=== PATIENT | male | born 1945 | race Caucasian/White ===

== ENCOUNTER 2019-08-26 06:19 | Outpatient (CLI) | payer MEDICARE, OTHER, SELFPAY ==
[2019-08-26 18:35] LABS: SARS-CoV-2 RNA PCR Negative
== END 2019-08-26 06:20 | disposition home or self-care (01) ==
LOC: ANHCOVIDDT 06:20
PROVIDERS: PCP Internal Medicine; Visit Provider Internal Medicine Gastroenterology
DX: Z01.818 Encounter for other preprocedural examination (principal); Z11.59 Encounter for screening for other viral diseases
CPT/HCPCS: 87635; C9803; U0003

== ENCOUNTER 2019-08-28 03:04 | Day surgery (SDC) | payer MEDICARE, OTHER, SELFPAY ==
[2019-08-25 09:41] VITALS: BMI 28.5
[2019-08-28 06:47] VITALS: BP 171/66; PULSE 72; RESP 20; TEMP 36.7; O2SAT 99
--- NOTE | 2019-08-28 06:51 | WPDANESEPPF ---
Anes - Initial Pre Proc Eval Procedure: Operation Date: 08/28/19 08:00 Proposed Procedures p Colonoscopy - Fabrizio Lopez MD Date/Time: 08/28/19 06:51 Surgeon: Fabrizio Lopez MD Pre Op Diagnosis: iron deficiency anemia Patient Data Age: 74 Gender: M Height: 5 ft 8 in Weight: 85.9 kg Last Vital Signs Temp 36.7 C 08/28/19 06:47 Pulse 72 08/28/19 06:47 Resp 20 08/28/19 06:47 BP 171/66 H 08/28/19 06:47 Pulse Ox 99 08/28/19 06:47 Allergies Allergy/AdvReac Type Severity Reaction Status Date / Time tetracycline Allergy Severe BLISTERS Verified 08/28/19 06:42 Home Medications Medication Instructions Recorded Confirmed Type aspirin 81 mg PO DAILY 03/02/19 08/25/19 History clopidogrel [Plavix] 75 mg PO DAILY 03/02/19 08/28/19 History amlodipine 10 mg PO DAILY 08/25/19 08/25/19 History atorvastatin 80 mg PO DAILY 08/25/19 08/25/19 History carvedilol 3.125 mg PO DAILY 08/25/19 08/25/19 History lisinopril 40 mg PO DAILY 08/25/19 08/25/19 History Patient hx anesthesia problems: none Family hx anesthesia problems: none PMFSH Past Medical History Medical History CHF (congestive heart failure) HTN (hypertension) Hypercholesterolemia Surgical History Surgical History H/O hernia repair H/O wrist surgery History of left hip replacement Previous back surgery Social History Social History Smoking status: Current every day smoker Tobacco type: cigarettes Alcohol intake: current Substance use: never Gender identity (if verbalized by the patient): Male Anes - Eval Final PreProcedure Day of Procedure 08/28/19 06:51 Patient weight: overweight Heart: regular rate and rhythm Lungs: clear to auscultation Airway: Mallampati scale class 1 Neurological: alert and oriented Last oral intake: >/= 8 hours ASA classification: III Emergent: no Anesthetic plan: proceed Anesthesia type and monitoring: general GIVS and standard monitoring Informed Consent: The patient's anesthetic plan and its attendant risks and benefits were discussed with the patient/family/POA. Questions were solicited and answers provided to the satisfaction of the patient/family/POA.
[2019-08-28] MEDS: LACTATED RINGERS 1,000 ML 150 ML IV CONT (06:58)
--- NOTE | 2019-08-28 07:21 | PM.HPGS ---
History of Present Illness History of Present Illness Consent: Risks, benefits, and alternatives have been discussed and questions answered. Patient agrees to proceed with procedure. Chief complaint: iron deficiency anemia Narrative: Lakhwinder Bright is a 74 year old W male referred for colonoscopy for evaluation of mild normocytic normochromic anemia. Patient has a history of anemia. I saw him 2 years ago for acute upper gastrointestinal bleed was found to have peptic ulcer disease. This was treated follow-up gastroscopy revealed resolution of the ulcers. Patient states he has been on iron therapy and H&H is not return to normal. He has no lower GI tract symptoms such as rectal bleeding or change in bowel habits. He does have a history of colonic polyps. Last colonoscopy was 7 years ago. [facility] Past Medical History Medical History CHF (congestive heart failure) HTN (hypertension) Hypercholesterolemia Surgical History Surgical History H/O hernia repair H/O wrist surgery History of left hip replacement Previous back surgery Social History Social History Smoking status: Current every day smoker Tobacco type: cigarettes Alcohol intake: current Substance use: never Gender identity (if verbalized by the patient): Male Meds Home Medications and Allergies Home Medications Medication Instructions Recorded Confirmed Type aspirin 81 mg PO DAILY 03/02/19 08/25/19 History clopidogrel [Plavix] 75 mg PO DAILY 03/02/19 08/28/19 History amlodipine 10 mg PO DAILY 08/25/19 08/25/19 History atorvastatin 80 mg PO DAILY 08/25/19 08/25/19 History carvedilol 3.125 mg PO DAILY 08/25/19 08/25/19 History lisinopril 40 mg PO DAILY 08/25/19 08/25/19 History Allergies Allergy/AdvReac Type Severity Reaction Status Date / Time tetracycline Allergy Severe BLISTERS Verified 08/28/19 06:42 Vital Signs Vital Signs - 24 hr 08/28/19 06:47 Temperature 36.7 C Pulse Rate 72 Respiratory Rate 20 Blood Pressure 171/66 H Pulse Oximetry 99 Exam Const: Orientation/consciousness: patient oriented x3 Resp: Auscultation: clear to auscultation bilaterally Cardio: Rate: regular rate Rhythm: regular rhythm Heart sounds: no murmurs GI: GI Palp: Yes Soft to palpation, No Tenderness to palpation present (GI), Yes No hepatosplenomegaly present and No Palpable mass present Auscultation: normal bowel sounds Neuro: General: patient oriented x3 and no focal motor deficits Extrem: General: no pedal edema Assessment and Plan Additional Plan Colonoscopy for evaluation of anemia
[2019-08-28] MEDS: SIMETHICONE ORAL SUSPENSION 20 MG/0.3 ML 30 ML BOTTLE 0.6 ML IRRIGATION (08:31)
[2019-08-28 08:40] VITALS: BP 109/57; PULSE 62; RESP 20; O2SAT 99
[2019-08-28 08:50] VITALS: BP 152/55; PULSE 66; RESP 20; O2SAT 99
[2019-08-28 09:00] VITALS: BP 158/77; PULSE 66; RESP 20; O2SAT 99
== END 2019-08-28 09:20 | disposition home or self-care (01) ==
PROVIDERS: PCP Internal Medicine; Visit Provider Internal Medicine Gastroenterology
PROC: 0DJD8ZZ Inspection of Lower Intestinal Tract, Via Natural or Artificial Opening Endoscopic (ICD-10-PCS; CPT 45378; principal; 2019-08-28 08:00)
DX: D50.9 Iron deficiency anemia, unspecified (principal); K64.1 Second degree hemorrhoids; K57.30 Diverticulosis of large intestine without perforation or abscess without bleeding; I11.0 Hypertensive heart disease with heart failure; I50.9 Heart failure, unspecified; E78.00 Pure hypercholesterolemia, unspecified; F17.210 Nicotine dependence, cigarettes, uncomplicated; Z79.82 Long term (current) use of aspirin; Z79.02 Long term (current) use of antithrombotics/antiplatelets
CPT/HCPCS: 45378; J2704; J7120

== ENCOUNTER 2020-04-18 10:00 | Emergency (ER) | payer MEDICARE, OTHER, SELFPAY ==
--- NOTE | ~2020-04-18 | XR_ITS ---
EXAMINATION: XR foot RT min 3V DATE: 04/18/2020 10:57 INDICATION: Pain at the dorsum of the right foot TECHNIQUE: Dorsoplantar, two oblique and lateral views of the right foot were obtained. COMPARISON: None. FINDINGS: Alignment is normal. No fracture. Joint spaces are normal. Large plantar calcaneal spur. Soft tissue swelling over the dorsum of the forefoot. IMPRESSION: 1. No acute osseous abnormality. Reviewed, dictated and finalized at location A. E
[2020-04-18 10:05] VITALS: BP 161/61; PULSE 82; RESP 18; TEMP 36.4; O2SAT 100
--- NOTE | 2020-04-18 10:28 | ED.LOWEXIN ---
HPI - Extremity Injury (Lower) General Chief Complaint: Extremity Injury, Lower Stated Complaint: right foot injury Time Seen by Provider: 04/18/20 10:12 Source: patient Mode of arrival: ambulatory Limitations: no limitations History of Present Illness HPI Narrative: Patient is a 75-year-old male who presents complaining of right foot pain. Patient reports that he dropped a large heavy gasket inspector's knife on top of right foot 04/15. He reports pain since. He reports increased pain with ambulation. Patient is on blood thinners. He reports tenderness with palpation. He denies other injuries. MD complaint: foot injury Related Data Home Medications Medication Instructions Recorded Confirmed aspirin 81 mg PO DAILY 03/02/19 08/25/19 clopidogrel [Plavix] 75 mg PO DAILY 03/02/19 08/28/19 amlodipine 10 mg PO DAILY 08/25/19 08/25/19 atorvastatin 80 mg PO DAILY 08/25/19 08/25/19 carvedilol 3.125 mg PO DAILY 08/25/19 08/25/19 lisinopril 40 mg PO DAILY 08/25/19 08/25/19 Allergies Allergy/AdvReac Type Severity Reaction Status Date / Time tetracycline Allergy Severe BLISTERS Verified 04/18/20 10:08 Review of Systems Review of Systems: Narrative: CONSTITUTIONAL: Denies fever, chills, or sweats. EYES: Denies visual changes, redness, or discharge. ENT: Denies rhinorrhea, congestion, sore throat, or otalgia. CARDIOVASCULAR: Denies chest pain, palpitations, or edema. RESPIRATORY: Denies cough or dyspnea. GASTROINTESTINAL: Denies abdominal pain, nausea, vomiting, or diarrhea. GENITOURINARY: Denies dysuria or hematuria. SKIN: Denies rash or itching. MUSCULOSKELETAL: Reports right foot pain NEUROLOGIC: Denies headache, numbness, dizziness, or weakness. PSYCHIATRIC: Denies anxiety or depression. [facility] Past Medical History Medical History CHF (congestive heart failure) Deviated septum HTN (hypertension) Hypercholesterolemia Surgical History Surgical History H/O heart bypass surgery H/O hernia repair H/O wrist surgery History of left hip replacement Previous back surgery Family History Family History (Updated 04/18/20 @ 10:33 by DICK Perez) Other No significant family history Social History Social History Smoking status: Current every day smoker Tobacco type: cigarettes Alcohol intake: current Substance use: never Gender identity (if verbalized by the patient): Male Exam Narrative: Exam Narrative: GENERAL: Well-appearing, well-nourished, and in no acute distress. HEAD: Normocephalic, atraumatic. EYES: No redness or drainage. ENT: Mucous membranes pink and moist. CHEST: No respiratory distress. HEART: Regular rate and rhythm. EXTREMITIES: Normal range of motion. Edema and ecchymosis to dorsal right foot. Tenderness with palpation. SKIN: Warm, dry, no rash. NEURO: No focal deficits. Alert and oriented x3. Gait steady. PSYCH: Normal affect. No signs of depression or anxiety. Course Vital Signs Vital signs: Vital Signs Temperature 36.4 C 04/18/20 10:05 Pulse Rate 82 04/18/20 10:05 Respiratory Rate 18 04/18/20 10:05 Blood Pressure 161/61 H 04/18/20 10:05 Pulse Oximetry 100 04/18/20 10:05 Temperature 36.4 C 04/18/20 10:05 Pulse Rate 82 04/18/20 10:05 Respiratory Rate 18 04/18/20 10:05 Blood Pressure 161/61 H 04/18/20 10:05 Pulse Oximetry 100 04/18/20 10:05 MDM - Extremity Injury (Lower) MDM Narrative Medical decision making narrative: Patient's x-ray shows no fracture or dislocation. Soft tissue swelling noted. Discussed with patient use of an Bon wrap as well as ice for pain relief. Discussed taking Tylenol for pain. Patient to follow-up with PCP in 3 to 5 days if symptoms persist. Patient is stable for discharge home with outpatient follow-up as discussed. Differential Diagnosis
[2020-04-18 12:00] VITALS: BP 144/65; PULSE 80; RESP 18; O2SAT 100
== END 2020-04-18 12:03 | disposition home or self-care (01) ==
PROVIDERS: Emergency Provider Nurse Practitioner; PCP Internal Medicine
DX: S90.31XA Contusion of right foot, initial encounter (principal); Z79.82 Long term (current) use of aspirin; Z79.02 Long term (current) use of antithrombotics/antiplatelets; I50.9 Heart failure, unspecified; I11.0 Hypertensive heart disease with heart failure; E78.00 Pure hypercholesterolemia, unspecified; Z96.642 Presence of left artificial hip joint; F17.210 Nicotine dependence, cigarettes, uncomplicated; W20.8XXA Other cause of strike by thrown, projected or falling object, initial encounter
CPT/HCPCS: 73630; 99283

== ENCOUNTER 2021-04-25 11:51 | Emergency (ER) | payer MEDICARE, SELFPAY ==
--- NOTE | ~2021-04-25 | XR_ITS ---
EXAMINATION: XR ribs LT 2V w CXR 2V EXAM DATE: 04/25/2021 12:15 INDICATION: Fall 7 days ago TECHNIQUE: Frontal projection of the upper left ribs, frontal projection of the lower left ribs, obli que projection of the left ribs, frontal and lateral chest x-ray(s) for interpretation. Comparison is made to prior examination from 03/02/2019. FINDINGS: Left 6th rib fracture posteriorly, not definitely seen on prior study but has more of a chr onic appearance. This potentially could have been a nondisplaced fracture in 2019 which has healed, w ould favor that over acute finding. Consider educating patient that even if there is a radiographical ly occult nondisplaced rib fracture, there is no specific treatment other than to refrain from activi ty that prevents healing. Sternotomy wires are present without findings to suggest sternal dehiscence. 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 No confluent consolidation, pneumothorax or pleural effusion suspected. Cardiomediastinal silhouette is normal. IMPRESSION: Left 6th rib fracture posteriorly, would favor chronic over acute age. Reviewed, dictated and finalized at location A. UNITY ASSISTANT
[2021-04-25 12:03] VITALS: BP 121/62; PULSE 74; RESP 18; TEMP 36.6; O2SAT 100
--- NOTE | 2021-04-25 13:00 | ED.GENADULT ---
HPI - General Adult General Stated complaint: left side chest pain Time Seen by Provider: 04/25/21 13:01 Source: patient Mode of arrival: ambulatory Limitations: no limitations History of Present Illness HPI narrative: 76-year-old male presented for complaint of left rib pain for about 1 week after fall at home. He states his legs gave out underneath him and he fell in the left knee and side. Endorses rib pain with coughing. Denies shortness of breath, wheezing, palpitations, dizziness. Has not been taking anything for pain symptoms. Has been splinting his chest. No other complaints at this time. Related Data Home Medications Medication Instructions Recorded Confirmed aspirin 81 mg PO DAILY 03/02/19 08/25/19 clopidogrel [Plavix] 75 mg PO DAILY 03/02/19 11/03/20 amlodipine 10 mg PO DAILY 08/25/19 11/03/20 atorvastatin 80 mg PO DAILY 08/25/19 11/03/20 carvedilol 3.125 mg PO DAILY 08/25/19 11/03/20 lisinopril 40 mg PO DAILY 08/25/19 11/03/20 Allergies Allergy/AdvReac Type Severity Reaction Status Date / Time tetracycline Allergy Severe BLISTERS Verified 11/03/20 13:26 Review of Systems Review of Systems: CONSTITUTIONAL: Denies body aches, fever, chills, or sweats. EYES: Denies visual changes, redness, or discharge. ENT: Denies rhinorrhea, congestion, sore throat, or otalgia. CARDIOVASCULAR: Denies chest pain, palpitations, or edema. RESPIRATORY: Denies cough or dyspnea. GASTROINTESTINAL: Denies abdominal pain, nausea, vomiting, or diarrhea. GENITOURINARY: Denies dysuria or hematuria. SKIN: Denies rash, itching, or wounds. MUSCULOSKELETAL: Endorses left rib pain NEUROLOGIC: Denies headache, numbness, tingling, or weakness. PSYCH: Denies depression or anxiety. [facility] Past Medical History Medical History CHF (congestive heart failure) Deviated septum HTN (hypertension) Hypercholesterolemia Surgical History Surgical History H/O heart bypass surgery H/O hernia repair H/O wrist surgery History of left hip replacement Previous back surgery Family History Family History Other No significant family history Social History Social History Smoking status: Current every day smoker Tobacco type: cigarettes Alcohol intake: current Alcohol use details: social Substance use: never Gender identity (if verbalized by the patient): Male Comments At time of signature, I have reviewed and agree with nursing past medical, surgical, social and family history unless otherwise noted. Please see nursing chart for further information. There is no relevant family history pertinent to the presenting complaint Exam Narrative: GENERAL: Well-appearing, well-nourished, and in no acute distress. HEAD: Normocephalic, atraumatic. EYES: EOMI. No redness or drainage. Conjunctivae normal. ENT: Mucous membranes pink and moist. No rhinorrhea. TMs normal bilaterally. Throat normal. Uvula midline. NECK: Normal AROM. Supple. No lymphadenopathy. CHEST: No respiratory distress. Clear to auscultation. HEART: Regular rate and rhythm. No murmur appreciated. Normal peripheral pulses. ABDOMEN: Soft, nontender, nondistended, normal active bowel sounds. MUSCULOSKELETAL: No bony tenderness. Denies rib pain with palpation EXTREMITIES: Normal range of motion. No edema. SKIN: Right lateral neck healing incision, warm, dry, no rash. Capillary refill normal. Normal skin turgor. NEURO: No focal deficits. Alert and oriented x3. Gait steady. PSYCH: Normal affect. No signs of depression or anxiety. Course Course Emergency Course: X-ray reviewed with patient. He states his pain is tolerable Level of Care: Express Care Visit Vital Signs Vital signs: Vital Signs Temperature 98 F 04/25/21 12:03 Pulse
== END 2021-04-25 13:15 | disposition home or self-care (01) ==
PROVIDERS: Emergency Provider Nurse Practitioner Family; PCP Internal Medicine
DX: R07.81 Pleurodynia (principal); F17.210 Nicotine dependence, cigarettes, uncomplicated; I11.0 Hypertensive heart disease with heart failure; I50.9 Heart failure, unspecified; E78.00 Pure hypercholesterolemia, unspecified; Z95.1 Presence of aortocoronary bypass graft; Z96.642 Presence of left artificial hip joint; Z79.82 Long term (current) use of aspirin; Z79.01 Long term (current) use of anticoagulants
CPT/HCPCS: 71046; 71100; 99213; G0463

== ENCOUNTER 2024-03-11 14:47 | Emergency (ER) | payer MEDICARE, SELFPAY ==
--- NOTE | ~2024-03-11 | XR_ITS ---
XR knee RT min 4V, XR knee LT min 4V 03/11/2024 15:41 Indication: Knee pain after fall Procedure: 4 views right knee and 4 views left knee Comparison: No prior studies for comparison. Findings: No fracture, subluxation or dislocation. There is anatomic alignment. No significant joint effusion. There is atherosclerosis. Impression: 1: No acute bone or joint abnormality. Reviewed, dictated and finalized at location B. TENANCE TECHNICIAN Impression: 1: No acute bone or joint abnormality. Impression: 1: No acute bone or joint abnormality.
--- NOTE | ~2024-03-11 | XR_ITS ---
XR elbow RT min 3V Ordering provider: Cortney Butterfield History: . fall, R elbow injury . Comparison: None. FINDINGS: BONES: Small bony fragment seen near to the lateral humeral condyle and inferior to the medial femora l condyle which may indicate old fractures. Clinical correlation for tenderness in the area is advise d. JOINT SPACES: Normal. SOFT TISSUES: Unremarkable. No definite joint effusion. IMPRESSION: Bony fragment seen near to the medial and lateral humeral Reviewed, dictated and finalized at location A. RAMMER ANALYST CONSULTANT
--- NOTE | ~2024-03-11 | XR_ITS ---
XR wrist RT min 3V Ordering provider: Cortney Butterfield APRN History: . fall, R wrist injury . Comparison: None. FINDINGS: BONES: Fracture in the distal metaphysis of the right radius with no displacement. Small bony fragmen t near to the ulnar styloid most likely due to old fracture. JOINT SPACES: Narrowing of the radiocarpal joint. SOFT TISSUES: Normal. IMPRESSION: Fracture in the distal metaphysis of the right radius with no displacement. Clinical evaluation for t enderness in the area is advise. Reviewed, dictated and finalized at location A. HMAKER IMPRESSION: Fracture in the distal metaphysis of the right radius with no displacement. Cli nical evaluation for tenderness in the area is advise.
[2024-03-11 14:57] VITALS: BP 144/65; PULSE 66; RESP 17; TEMP 36.4; O2SAT 99
--- NOTE | 2024-03-11 15:17 | ED_ITS ---
HPI - Fall General Chief Complaint: Fall <Cortney Butterfield APRN - Last Filed: 03/11/24 15:20> Stated Complaint: fall, bilateral knee pain and lac to the R elbow <Cortney Butterfield APRN - Last Filed: 03/11/24 15:20> Time Seen by Provider: 03/11/24 15:00 <Cortney Butterfield APRN - Last Filed: 03/11/24 15:20> Focused HPI: Patient is a 71-year-old male who presents to the ER after a fall home. He reports he tripped over screens and fell to the floor. Patient endorses pain on his right wrist, right elbow and bilateral knees. He takes a daily blood thinner, but recently had his blood work checked in his coags were within normal limits. Patient denies any uncontrolled bleeding, chest pain or shortness of breath. GENERAL: Well-appearing, well-nourished, and in no acute distress. HEAD: Normocephalic, atraumatic. CHEST: Clear to auscultation. ?No respiratory distress. HEART: Regular rate and rhythm.? NEURO: ?Alert and oriented x3. Patient screened in triage and initial orders placed.? ?Additional care and disposition to be based upon?diagnostic testing and treatment. <Cortney Butterfield APRN - Last Filed: 03/11/24 15:20> History of Present Illness HPI Narrative: Agree with the HPI as above <Jaden Scott MD - Last Filed: 03/11/24 20:06> Related Data Home Medications: Home Medications Medication Instructions Recorded Confirmed aspirin 81 mg chewable tablet 81 mg PO DAILY 03/02/19 04/25/21 clopidogrel 75 mg tablet (Plavix) 75 mg PO DAILY 03/02/19 04/25/21 amlodipine 10 mg tablet 10 mg PO DAILY 08/25/19 04/25/21 atorvastatin 80 mg tablet 80 mg PO DAILY 08/25/19 04/25/21 lisinopril 40 mg tablet 40 mg PO DAILY 08/25/19 04/25/21 alprazolam 0.5 mg tablet 0.5 mg PO DIRECTED 04/25/21 04/25/21 <Cortney Butterfield APRN - Last Filed: 03/11/24 15:20> Allergies/Adverse Reactions: Allergies Allergy/AdvReac Type Severity Reaction Status Date / Time tetracycline Allergy Severe BLISTERS Verified 11/03/20 13:26 <Cortney Butterfield APRN - Last Filed: 03/11/24 15:20> Review of Systems Review of Systems: As reviewed above <Jaden Scott MD - Last Filed: 03/11/24 20:06> PMFSH Past Medical History Medical History: Medical History CHF (congestive heart failure) Deviated septum HTN (hypertension) Hypercholesterolemia <Cortney Butterfield APRN - Last Filed: 03/11/24 15:20> Surgical History Surgical History: Surgical History H/O heart bypass surgery H/O hernia repair H/O wrist surgery History of left hip replacement Previous back surgery <Cortney Butterfield APRN - Last Filed: 03/11/24 15:20> Family History Family History: Family History Other No significant family history <Cortney Butterfield APRN - Last Filed: 03/11/24 15:20> Social History Social History: Social History Smoking status: Current every day smoker Tobacco type: cigarettes Alcohol intake: current Alcohol use details: social Substance use: never Living arrangements: with family Gender identity (if verbalized by the patient): Male <Cortney Butterfield APRN - Last Filed: 03/11/24 15:20> Exam Narrative: GENERAL: [Well-appearing, well-nourished, and in no acute distress.] HEAD: [Normocephalic, atraumatic.] EYES: [PERRLA and EOMI.] ENT: Nares clear, no rhinorrhea or epistaxis. Mucous membranes moist. NECK: Supple. CHEST: [Clear to auscultation. No respiratory distress.] HEART: [Regular rate and rhythm]. No murmur heard. [Normal peripheral pulses.] ABDOMEN: [Soft, nondistended], [nontender], [No rigidity or guarding] EXTREMITIES: Some minor swelling and tenderness over the dorsum of the right wrist. No restricted range of motion of the wrist joint, elbow flexion extension, shoulder flexion extension within normal limits. Manager Engagement strength 5/5 within normal limits. SKIN: Various skin tears without any active bleeding. The skin of Bladimir and skin tears of the dorsum of the right hand at the wrist joint, posterior aspect of the elbow distal to the olecranon. No active bleeding, no lacerations that require repair NEURO: [No focal deficits]. Alert and oriented [x3.] PSYCH: [Normal mood and affect.] <Jaden Scott MD - Last Filed: 03/11/24 20:06> Course Vital Signs Vital signs: Vital Signs Temperature 36.4 C L 03/11/24 14:57 Pulse Rate 66 03/11/24 14:57 Respiratory Rate 17 03/11/24 14:57 Blood Pressure 144/65 H 03/11/24 14:57 Pulse Oximetry 99 03/11/24 14:57 Temperature 36.4 C L 03/11/24 14:57 Pulse Rate 73 03/11/24 18:02 Respiratory Rate 19 03/11/24 18:02 Blood Pressure 141/92 H 03/11/24 18:02 Pulse Oximetry 98 03/11/24 18:02 <Cortney Butterfield APRN - Last Filed: 03/11/24 15:20> Vital Signs Temperature 36.4 C L 03/11/24 14:57 Pulse Rate 66 03/11/24 14:57 Respiratory Rate 17 03/11/24 14:57 Blood Pressure 144/65 H 03/11/24 14:57 Pulse Oximetry 99 03/11/24 14:57 Temperature 36.4 C L 03/11/24 14:57 Pulse Rate 73 03/11/24 18:02 Respiratory Rate 19 03/11/24 18:02 Blood Pressure 141/92 H 03/11/24 18:02 Pulse Oximetry 98 03/11/24 18:02 <Jaden Scott MD - Last Filed: 03/11/24 20:06> Procedures Orthopedic Splinting/Casting Injury #1: Splinting/Casting Date: 03/11/24 <Jaden Scott MD - Last Filed: 03/11/24 20:06> Splinting/Casting Time: 18:00 <Jaden Scott MD - Last Filed: 03/11/24 20:06> Side: right <Jaden Scott MD - Last Filed: 03/11/24 20:06> Upper Extremity Injury Location: wrist <Jaden Scott MD - Last Filed: 03/11/24 20:06> Upper Extremity Immobilizer: volar splint <Jaden Scott MD - Last Filed: 03/11/24 20:06> Pre-Procedure Neuro Vascular Exam: normal <Jaden Scott MD - Last Filed: 03/11/24 20:06> Post-Procedure Neuro Vascular Exam: normal <Jaden Scott MD - Last Filed: 03/11/24 20:06> MDM - Fall MDM Narrative Medical decision making narrative: 79-year-old male presenting after falling through a screen door. He did sustain some skin tear and skin avulsions on his upper extremity on the right side. He also did land on to his bilateral knees. He has complained of some pain in both knees and the right dorsum of the right wrist. Otherwise well- appearing on a acute distress. Bleeding is well controlled after the skin tear sites were inspected and irrigated with saline. No lacerations were uncovered or any open fractures. Skin tears were covered with triple antibiotic ointment and gauze for protection as well as Coban on top for wound care. The swelling on the dorsum of the right wrist makes is suspicious for fracture and x-rays were obtained of the bilateral knees, right wrist, right elbow. Patient states his pain is 0 and does not require any analgesia at this time. X-rays were all independently reviewed and interpreted by myself and also by Radiology. The x-ray of the elbow shows bony fragments from old fractures in his elbow but no acute tenderness in this area or any joint effusion that would make me suspicious for acute fracture. Radiology confirms. Bilateral knee x- rays without any bony anomalies or joint anomalies. Right wrist with a fracture of the distal right radius without displacement. Volar wrist splint was custom molded and placed into the patient's successfully. Patient tolerated this well. Patient is stable for discharge home at this time with orthopedic follow-up. Patient presently is pain free and expressed understanding of the need to follow-up with orthopedic surgery and his primary care provider. Patient states that he does not have any pain at this time and can take [id number] medications as needed. <Jaden Scott MD - Last Filed: 03/11/24 20:06> Discharge Plan Discharge Clinical Impression: Distal radius fracture <Cortney Butterfield APRN - Last Filed: 03/11/24 15:20> Patient Disposition: Home, Self-Care <Cortney Butterfield APRN - Last Filed: 03/11/24 15:20> Condition: Stable <Cortney Butterfield APRN - Last Filed: 03/11/24 15:20> Instructions: Antibiotic Form, Wrist Fracture in Adults (ED) <Cortney Butterfield APRN - Last Filed: 03/11/24 15:20> Additional Instructions: He of a very minor nondisplaced wrist fracture on the right arm. Follow- up with your primary care provider and also the orthopedic surgeon we will refer due to. You can continue take Tylenol and ibuprofen for aches and pains and follow-up outpatient on a short-term basis. Return with any new or worsening concerns. <Cortney Butterfield APRN - Last Filed: 03/11/24 15:20> Prescriptions: No Action alprazolam 0.5 mg tablet 0.5 mg PO DIRECTED clopidogrel [Plavix] 75 mg Tablet 75 mg PO DAILY aspirin 81 mg Tablet,Chewable 81 mg PO DAILY atorvastatin 80 mg tablet 80 mg PO DAILY amlodipine 10 mg tablet 10 mg PO DAILY lisinopril 40 mg tablet 40 mg PO DAILY <Cortney Butterfield APRN - Last Filed: 03/11/24 15:20> Follow-up/Referrals: José,Sachin Rodriguez MD [Primary Care Provider] - Royal Cortés MD [Physician] - 1 Week (Distal radius fx) <Cortney Butterfield APRN - Last Filed: 03/11/24 15:20> Time of Disposition: 17:14 <Cortney Butterfield APRN - Last Filed: 03/11/24 15:20> 17:14 <Jaden Scott MD - Last Filed: 03/11/24 20:06>
[2024-03-11 18:02] VITALS: BP 141/92; PULSE 73; RESP 19; O2SAT 98
== END 2024-03-11 18:02 | disposition home or self-care (01) ==
PROVIDERS: Emergency Provider Student in an Organized Health Care Education/Training Program; PCP Internal Medicine
DX: S59.291A Other physeal fracture of lower end of radius, right arm, initial encounter for closed fracture (principal); S61.511A Laceration without foreign body of right wrist, initial encounter; S51.011A Laceration without foreign body of right elbow, initial encounter; I50.9 Heart failure, unspecified; I11.0 Hypertensive heart disease with heart failure; E78.00 Pure hypercholesterolemia, unspecified; F17.210 Nicotine dependence, cigarettes, uncomplicated; Z95.1 Presence of aortocoronary bypass graft; Z96.642 Presence of left artificial hip joint; Z79.02 Long term (current) use of antithrombotics/antiplatelets; Z79.82 Long term (current) use of aspirin; Z79.899 Other long term (current) drug therapy; W18.09XA Striking against other object with subsequent fall, initial encounter
CPT/HCPCS: 29125; 73080; 73110; 73564; 99284